=== PATIENT | female | born 1985 | race Caucasian/White ===

== ENCOUNTER 2017-10-24 12:18 | Emergency (ER) | payer MEDICAID, OTHER ==
[2017-10-24 13:07] LABS: #Lymphocytes 2.1 thou/uL (1.20-3.40); #Monocytes 0.7 thou/uL (0.11-0.59); %Basophils 0.1 % (0.0-1.0); %Eosinophils 0.3 % (0.0-10.0); %Lymphocytes 13.9 % (21.0-51.0); %Monocytes 4.5 % (0.0-10.0); %Neutrophils 81.2 % (42.0-75.0); Hemoglobin 14.3 g/dL (12.0-16.0); Mean Corpuscular HGB CONC 35.1 g/dL (32.0-36.0); Mean Corpuscular Hemoglobin 32.3 pg (27.0-31.0); Mean Corpuscular Volume 92.1 fl (81.0-99.0); Mean Platelet Volume 7.3 fL (7.4-10.4); Platelet Count 291 thou/uL (130-400); RBC Distribution Width 11.1 % (11.5-14.5); Red Blood Cell (RBC) Count 4.42 mill/uL (4.20-5.40); White Blood Cell (WBC) Count 14.8 thou/uL (4.8-10.8)
[2017-10-24 13:27] LABS: ALT (SGPT) 13 U/L (8-55); AST (SGOT) 12 U/L (5-34); Albumin 3.8 g/dL (3.5-5.0); Alkaline Phosphatase 64 U/L (40-150); Anion Gap 13 mmol/L (10-20); BUN (Urea Nitrogen) 9 mg/dL (7.0-18.7); Bilirubin, Total 0.4 mg/dL (0.2-1.2); Calc. Creatinine Clearance 0 mL/min (70-130); Calcium 9.7 mg/dL (7.8-10.44); Carbon Dioxide 24 mmol/L (22-29); Chloride 103 mmol/L (98-107); Estimated GFR-MDRD 90; Globulin 3.5 g/dL (2.4-3.5); Glucose 123 mg/dL (70-105); Potassium 4.2 mmol/L (3.5-5.1); Protein, Total 7.3 g/dL (6.0-8.3); Sodium 136 mmol/L (136-145)
--- NOTE | 2017-10-24 14:45 | ULT ---
FIRST TRIMESTER OBSTETRICAL ULTRASOUND: INDICATION: History of with cramping. FINDINGS: The uterus measures 11.3 x 10.5 x 7.3 cm. The right ovary measures 1.7 x 2.3 x 1.9 cm. The left ova ry measures 3.3 x 2.6 x 1.9 cm. There is a single intrauterine gestational sac with a pole and yolk sac identified. Cardiac activity is noted with the fetus measuring up to 168 b.p.m. No subcho rionic hemorrhage is evident. No free fluid is evident. The gestational age based on sonographic measurements is 8 weeks and 5 days with estimated due date . The gestational age based on dates was 7 weeks and 6 days with estimated due date of 06/06/18. IMPRESSION: Single live intrauterine gestation. POS: CHIDI
[2017-10-24 15:35] LABS: Bilirubin Small (Negative); Blood, Urine Negative (Negative); Clarity CLOUDY (Clear); Glucose, Urine (Dipstick) Negative (Negative); Leukocyte Negative (Negative); Nitrite Negative (Negative); Protein, Urine (Dipstick) Trace mg/dL (Neg-Trace); Specific Gravity, Urine 1.028 (1.002-1.036); Urobilinogen 0.2 mg/dL (0.2-1.0); pH, Urine 6.5 (5.0-9.0)
== END 2017-10-24 16:05 | disposition home or self-care (01) ==
LOC: ERS 12:18
DX: O20.0 Threatened abortion (principal); O99.341 Other mental disorders complicating pregnancy, first trimester; F32.9 Major depressive disorder, single episode, unspecified; Z3A.08 8 weeks gestation of pregnancy
CPT/HCPCS: 36415; 76856; 80053; 81003; 84702; 85025; 86900; 86901

== ENCOUNTER 2018-05-08 08:39 | Day surgery (SDC) | payer OTHER ==
[2018-05-08 09:25] VITALS: BMI 32.8
--- NOTE | 2018-05-08 12:48 | HP ---
DATE OF SERVICE: 05/08/2018 PRIMARY OB: Dr. Austin Liang. CHIEF COMPLAINT: Abdominal pains. HISTORY OF PRESENT ILLNESS: The patient is a 32-year-old G6, P4 female with an intrauterine pregnanc y at 37 weeks and a day, who presents to labor and delivery today with mild to moderate uterine contr actions requesting induction of labor. The patient denies any leakage of fluid, any vaginal bleeding , any urinary problems, any fever, fall, headache, chest pain, shortness of breath, nausea, vomiting, diarrhea, constipation. She denies any new rashes. She does have some hip problems when she sleeps on her side. Denies any back pain. PAST MEDICAL HISTORY: Depression and anxiety. She has a history of bacterial endocarditis. PAST SURGICAL HISTORY: She has had knee surgery and 2 cryosurgeries on her cervix. MEDICATIONS: vitamins. ALLERGIES: PENICILLINS. SOCIAL HISTORY: Denies tobacco, alcohol, or drug use. OB LABORATORY DATA: Blood type is A positive, antibody screen is negative. She is rubella immune. RPR is nonreactive. HIV is nonreactive. Hepatitis B surface antigen is nonreactive. Quad screen is negative. REVIEW OF SYSTEMS: Per HPI. PHYSICAL EXAMINATION: VITAL SIGNS: Blood pressure is 128/80, heart rate of 83, respiratory rate 18, temperature 98.5. GENERAL: She appears to be in no acute distress. She is alert and oriented, cooperative and pleasan t to interact with. HEENT: Head is normocephalic, atraumatic. LUNGS: Clear to auscultation bilaterally. HEART: Has a regular rate and rhythm. ABDOMEN: Soft and gravid. EXTREMITIES: Nontender, nonedematous. CERVICAL EXAM: A 2, 60, -2 station, unchanged after 2 hours or hour and a half. NST performed for abdominal pain in . Duration of the tracing is nearly 2 hours. Baseline is noted to be in the 140s with moderate long-term variability, positive accelerations, no decelerati ons. Contractions are irregular and not all felt by the patient. ASSESSMENT AND PLAN: The patient is a 32-year-old female G6, P4 with an intrauterine at 37 weeks who presented for evaluation of labor and requesting induction of labor. We informed the dhiraj ent that at 37 weeks, elective inductions are not performed. She has no evidence of labor at this ti me and the fetus has a reactive NST and category 1 tracing. The patient has been given reassurance a nd been given term labor precautions. The patient will be discharged to home. She does have an appo intment with her primary OB, Dr. Austin Liang on Tuesday, at which time she can be reevaluated if s he does not return here.
== END 2018-05-08 11:35 | disposition home or self-care (01) ==
LOC: L&D/OP 08:39
PROVIDERS: ATTEND Obstetrics & Gynecology
DX: O47.1 False labor at or after 37 completed weeks of gestation (principal); Z3A.37 37 weeks gestation of pregnancy; Z88.0 Allergy status to penicillin
CPT/HCPCS: 99283

== ENCOUNTER 2018-05-08 17:03 | Inpatient (IN) | payer OTHER ==
[2018-05-08] MEDS ORDERED: Ibuprofen 800 MG TAB PO PRN (18:04)
[2018-05-08] MEDS ORDERED: Lidocaine 1% (PF) 30 ML VIAL SC PRN (18:04)
[2018-05-08] MEDS ORDERED: HYDROcodone/Acetaminophen 5/325 mg Tablet PO PRN ×2 (18:04)
[2018-05-08] MEDS ORDERED: Ondansetron HCl/PF 4 MG/2 ML Vial IVP PRN (18:04)
[2018-05-08] MEDS ORDERED: NS / Oxytocin 40 units/1000ml 1,000 ML IV PRN (18:04)
[2018-05-08] MEDS ORDERED: Lactated Ringer's 1,000 ML IV SCH (18:15)
[2018-05-08] MEDS ORDERED: NS w/ Oxytocin 10 units 500 ML IV SCH (18:15)
[2018-05-08 18:28] VITALS: BMI 32.5
[2018-05-08 18:28] LABS: Hemoglobin 11.7 g/dL (12.0-16.0); Mean Corpuscular HGB CONC 34.6 g/dL (32.0-36.0); Mean Corpuscular Hemoglobin 31.3 pg (27.0-31.0); Mean Corpuscular Volume 90.3 fL (78.0-98.0); Mean Platelet Volume 7.6 fL (7.4-10.4); Platelet Count 225 thou/uL (130-400); RBC Distribution Width 11.9 % (11.5-14.5); Red Blood Cell (RBC) Count 3.75 mill/uL (4.20-5.40); White Blood Cell (WBC) Count 14.6 thou/uL (4.8-10.8)
[2018-05-08 19:10] LABS: HBSAg Index 0.19 S/CO (0-0.99); Hep B Surf Ag Non-Reactive S/CO (NonReactive); Syphilis Antibody Nonreactive (Nonreactive); Syphilis Antibody Index 0.03 S/CO (<1.00 Non-Reactive)
[2018-05-08] MEDS: Lactated Ringer's 1,000 ML IV SCH (22:55)
[2018-05-09] MEDS: Lactated Ringer's 1,000 ML IV SCH ×3 (03:35→11:40)
[2018-05-09] MEDS ORDERED: Lidocaine HCl/Epinephrine 5 ML AMPUL IJ ONE (07:28)
[2018-05-09] MEDS ORDERED: Bupivacaine 0.75% 13.4 ML, fentaNYL Citrate/PF 400 MCG in Sodium Chloride 0.9% 78.6 ML EPIDURAL SCH (07:30)
[2018-05-09] MEDS ORDERED: DISCONTINUE ALL PREVIOUS NARCOTICS FS SCH (07:30)
[2018-05-09] MEDS ORDERED: NS w/ Oxytocin 10 units 500 ML IVPB SCH (07:45)
[2018-05-09] MEDS ORDERED: Promethazine HCl 25 MG/ML VIAL IM PRN (10:21)
[2018-05-09] MEDS ORDERED: Eucerin (Mineral Oil/Petrolatum,White) 30 gm Jar TOP PRN (10:21)
[2018-05-09] MEDS ORDERED: diphenhydrAMINE 50 MG/ML VIAL IVP PRN (10:21)
[2018-05-09] MEDS ORDERED: Lactated Ringer's 500 ML IV PRN (10:21)
[2018-05-09] MEDS ORDERED: Acetaminophen 325 MG TAB PO PRN (10:21)
[2018-05-09] MEDS ORDERED: Ondansetron HCl/PF 4 MG/2 ML Vial IVP PRN ×2 (10:21→17:57)
[2018-05-09] MEDS ORDERED: ePHEDrine/0.9% NaCl/PF SYRINGE 50 mg/10 ml SLOW IVP PRN (10:21)
[2018-05-09] MEDS ORDERED: Naloxone HCl 0.4 mg/ml Vial IVP PRN ×2 (10:21)
[2018-05-09] MEDS ORDERED: fentaNYL Citrate/PF 400 MCG, Bupivacaine 0.5% 20 ML in Sodium Chloride 0.9% 72 ML EPIDURAL SCH (10:30)
[2018-05-09] MEDS ORDERED: Communication Order-Pharmacy FS SCH (10:30)
[2018-05-09] MEDS: NS / Oxytocin 40 units/1000ml 1,000 ML IV SCH ×2 (17:33→19:53)
[2018-05-09] MEDS ORDERED: Benzocaine/Menthol 20-0.5% 60 ML CAN TOP PRN (17:57)
[2018-05-09] MEDS ORDERED: Preparation H Ointment 28 GM TUBE PR PRN (17:57)
[2018-05-09] MEDS ORDERED: Lanolin Ointment 7 GM TUBE TOP PRN (17:57)
[2018-05-09] MEDS ORDERED: Milk Of Magnesia 30 ML UDCUP PO PRN (17:57)
[2018-05-09] MEDS ORDERED: diphenhydrAMINE 25 MG CAP PO PRN (17:57)
[2018-05-09] MEDS ORDERED: Acetaminophen/Codeine 30-300mg Tablet PO PRN ×2 (17:57)
[2018-05-09] MEDS ORDERED: Adacel (T-DAP) 0.5 ML VIAL IM ONE (17:57)
[2018-05-09] MEDS ORDERED: Bisacodyl 10 MG SUPP PR PRN (17:57)
[2018-05-09] MEDS ORDERED: Zolpidem Tartrate 5 MG TAB PO PRN (17:57)
[2018-05-09] MEDS: Docusate Calcium (SURFAK) 240 MG CAP PO SCH (22:19)
[2018-05-09] MEDS: Ibuprofen 800 MG TAB PO SCH (22:19)
[2018-05-09] MEDS ORDERED: HYDROcodone/Acetaminophen 5/325 mg Tablet PO PRN (23:26)
[2018-05-09] MEDS: HYDROcodone/Acetaminophen 5/325 mg Tablet PO PRN (23:47)
[2018-05-10] MEDS: Ibuprofen 800 MG TAB PO SCH ×3 (05:26→21:24)
[2018-05-10] MEDS: HYDROcodone/Acetaminophen 5/325 mg Tablet PO PRN ×3 (05:31→18:12)
[2018-05-10 07:44] LABS: Hemoglobin 10.2 g/dL (12.0-16.0); Mean Corpuscular HGB CONC 33.5 g/dL (32.0-36.0); Mean Corpuscular Hemoglobin 31.3 pg (27.0-31.0); Mean Corpuscular Volume 93.4 fL (78.0-98.0); Mean Platelet Volume 7.9 fL (7.4-10.4); Platelet Count 166 thou/uL (130-400); RBC Distribution Width 12.3 % (11.5-14.5); Red Blood Cell (RBC) Count 3.25 mill/uL (4.20-5.40); White Blood Cell (WBC) Count 14.6 thou/uL (4.8-10.8)
[2018-05-10] MEDS: Ferrous Sulfate 325 MG TAB PO SCH ×2 (09:47→18:13)
[2018-05-10] MEDS: Prenatal Vitamin 1 TAB PO SCH (09:47)
[2018-05-10] MEDS: Docusate Calcium (SURFAK) 240 MG CAP PO SCH ×2 (09:47→21:24)
[2018-05-10] MEDS ORDERED: Promethazine 25 MG TAB PO PRN (20:39)
[2018-05-11 01:29] VITALS: TEMP 98.2
[2018-05-11] MEDS: Ibuprofen 800 MG TAB PO SCH ×2 (06:21→13:10)
[2018-05-11 08:19] VITALS: BP 128/87
[2018-05-11] MEDS: Docusate Calcium (SURFAK) 240 MG CAP PO SCH (09:14)
[2018-05-11] MEDS: Prenatal Vitamin 1 TAB PO SCH (09:14)
[2018-05-11] MEDS: Ferrous Sulfate 325 MG TAB PO SCH (09:14)
[2018-05-11] MEDS: HYDROcodone/Acetaminophen 5/325 mg Tablet PO PRN (13:10)
== END 2018-05-11 14:40 | disposition home or self-care (01) | DRG 775 ==
LOC: L&D/OP 17:03 → L&D 19:48 → 3SW 05-09 20:07
PROVIDERS: ADMIT Obstetrics & Gynecology; ATTEND Obstetrics & Gynecology
PROC: 10E0XZZ Delivery of Products of Conception, External Approach (ICD-10-PCS; principal; 2018-05-09)
DX: O60.14X0 Preterm labor third trimester with preterm delivery third trimester, not applicable or unspecified (principal); Z3A.37 37 weeks gestation of pregnancy; Z37.0 Single live birth; O99.343 Other mental disorders complicating pregnancy, third trimester; F32.9 Major depressive disorder, single episode, unspecified
CPT/HCPCS: 36415; 51702; 85027; 86780; 86850; 86900; 86901; 87340; 90715; 99285; J2001; J2405; J3010; J3490; J7050; J7620

== ENCOUNTER 2018-06-12 07:27 | Day surgery (SDC) | payer OTHER ==
[2018-06-09 08:44] VITALS: BMI 29.7
[2018-06-12] MEDS ORDERED: cefOXitin 2 GM VIAL ONE (08:17)
[2018-06-12] MEDS ORDERED: Sodium Chloride 0.9% 0 ML ONE (08:17)
[2018-06-12] MEDS ORDERED: Midazolam HCl 2 mg/2 ml Vial ONE (08:57)
[2018-06-12] MEDS ORDERED: Bupivacaine HCl 0.5%/Epinephrine 1:200,000/PF 30 ml Vial ONE (08:59)
[2018-06-12] MEDS ORDERED: Bacitracin Zinc Ointment 30 gm TUBE ONE (08:59)
[2018-06-12] MEDS ORDERED: Lidocaine 2% 10 ML INJ ONE (08:59)
[2018-06-12] MEDS ORDERED: Levofloxacin 500 mg/D5W 100 ml Premix Bag ONE (09:03)
[2018-06-12] MEDS ORDERED: HYDROmorphone 2 MG/ML VIAL ONE (09:04)
[2018-06-12] MEDS ORDERED: Promethazine HCl 25 MG/ML VIAL ONE (09:05)
--- NOTE | 2018-06-12 09:56 | OP ---
PREOPERATIVE DIAGNOSIS: Chronic anal fissure with sentinel pile. SURGEON: Constantin Watters M.D. PROCEDURE PERFORMED: Lateral internal sphincterotomy with excision of sentinel pile. INDICATIONS: This is a 32-year-old female who has had intermittent rectal pain and bleeding for many months. She was found to have a chronic anal fissure. She desired excision of the sentinel pile as well. FINDINGS: Small posterior sentinel pile with chronic anal fissure. PROCEDURE IN DETAIL: After informed consent was obtained, the patient was taken to the operating megha m and given general endotracheal anesthesia. She was placed in the lithotomy position. Her perianal region was prepped and draped in usual fashion. Local anesthesia infiltrated subcutaneously and cyndie p as a four quadrant anal block. The bivalve anal retractor was inserted. The anus inspected. She had a chronic posterior anal fissure. The sentinel pile was excised with electrocautery. An incisio n made in the intersphincteric groove on the left side. Anoderm anal mucosa bluntly dissected from t he internal sphincter. The internal sphincter then bluntly dissected from the external sphincter and sharply divided. Hemostasis achieved with direct pressure. A 3-0 chromic suture used to close the incision. Gelfoam impregnated with bacitracin inserted within the anal canal. Sterile bandage appli ed. The patient tolerated the procedure well and was transferred to recovery in good condition. Spo nge and needle count verified correct x2.
== END 2018-06-12 12:00 | disposition home or self-care (01) ==
LOC: SDC 07:27
PROVIDERS: ATTEND Surgery
PROC: 0D8R3ZZ Division of Anal Sphincter, Percutaneous Approach (ICD-10-PCS; principal; 2018-06-12)
DX: K60.1 Chronic anal fissure (principal); K64.4 Residual hemorrhoidal skin tags; Z87.891 Personal history of nicotine dependence; Z79.899 Other long term (current) drug therapy; Z88.0 Allergy status to penicillin
CPT/HCPCS: 88305; J0670; J0694; J1170; J1956; J2250; J2550; J7050; Q9968

== ENCOUNTER 2018-08-28 08:16 | Emergency (ER) | payer OTHER, SELFPAY ==
[2018-08-28 10:42] LABS: Pregnancy Test - Urine (BHCG) POSITIVE (Negative)
[2018-08-28 10:43] LABS: Pregu Control Background? CLEAR/WHITE (CLR/WHITE); Pregu Control Bar Appear? YES (CONTROL BAR)
--- NOTE | 2018-08-28 12:30 | ULT ---
PELVIC ULTRASOUND INCLUDING TRANSABDOMINAL AND TRANSVAGINAL AND VASCULAR DUPELX WITH COLOR AND SPECTR AL DOPPLER IMAGING: HISTORY: A 32-year-old female with a history of IUD placement 8 weeks ago. Positive home test. FINDINGS: The uterus is borderline in size measuring 9.3 x 5.0 x 6.6 cm. The right ovary measures 1.9 x 2.8 x 3.3 cm. The left ovary is not seen. Endometrium approximates 0.8 cm. There is a somewhat thick-wal led partially cystic structure measuring approximately 1.7 x 1.8 cm in the right adnexal region. Enh ancement has a somewhat ring of fire appearance. This could potentially be a corpus luteum cyst, alt michelle the possibility of an early ectopic certainly cannot be excluded. No evidence for an intrauterine . No IUD is seen within the uterus. IMPRESSION: No intrauterine gestational sac or Intrauterine device seen within the uterus. Right ovary demonstra meme vascular flow. No evidence of right ovarian torsion The left ovary is not seen. There is a 1.7 x 1.8 cm diameter somewhat thick walled cyst or complex cystic mass in the right adnexal region poss ibly representing a corpus luteum cyst of the right ovary or possibly representing ectopic . No significant abnormal fluid collection within the pelvis. Followup serum HCGs are recommended to evaluate for potential ectopic . POS: CHIDI
[2018-08-28 13:20] LABS: #Eosinphils 0.1 thou/uL (0.0-0.7); #Lymphocytes 2.7 thou/uL (1.20-3.40); #Monocytes 0.6 thou/uL (0.11-0.59); #Neutrophils 5.6 thou/uL (1.40-6.50); %Basophils 0.4 % (0.0-1.0); %Eosinophils 0.8 % (0.0-10.0); %Lymphocytes 29.8 % (21.0-51.0); %Monocytes 6.2 % (0.0-10.0); %Neutrophils 62.8 % (42.0-75.0); Hemoglobin 14.1 g/dL (12.0-16.0); Mean Corpuscular Hemoglobin 30.3 pg (27.0-31.0); Mean Platelet Volume 7.3 fL (7.4-10.4); Platelet Count 329 thou/uL (130-400); RBC Distribution Width 11.8 % (11.5-14.5); Red Blood Cell (RBC) Count 4.64 mill/uL (4.20-5.40); White Blood Cell (WBC) Count 8.9 thou/uL (4.8-10.8)
[2018-08-28 13:36] LABS: ALT (SGPT) 14 U/L (8-55); AST (SGOT) 17 U/L (5-34); Alkaline Phosphatase 80 U/L (40-150); Anion Gap 12 mmol/L (10-20); BUN (Urea Nitrogen) 10 mg/dL (7.0-18.7); Bilirubin, Total 0.6 mg/dL (0.2-1.2); Calc. Creatinine Clearance 0 mL/min (70-130); Calcium 9.3 mg/dL (7.8-10.44); Carbon Dioxide 21 mmol/L (22-29); Chloride 107 mmol/L (98-107); Estimated GFR-MDRD 88; Globulin 3.2 g/dL (2.4-3.5); Glucose 81 mg/dL (70-105); Potassium 3.8 mmol/L (3.5-5.1); Protein, Total 7.2 g/dL (6.0-8.3); Sodium 136 mmol/L (136-145)
--- NOTE | 2018-08-28 23:00 | CON ---
DATE OF CONSULTATION: 08/28/2018 TIME OF SERVICE: 1500 hours. GYNECOLOGY ER CONSULTATION REASON FOR CONSULTATION: Positive test, possible ectopic . HISTORY OF PRESENT ILLNESS: Ms. Rivas is a 32-year-old 7, para 5, AB 1, who presents today to the emergency room with mild lower abdominal discomfort and symptoms of . The patient had a progesterone IUD placed by Dr. Liang approximately 2 months ago. She reports that she had some ble eding for about 3-4 weeks afterwards that was heavy at times and has since stopped. She has had some fatigue and nausea for the past 3-4 days and mild lower abdominal pain. She denies localization of her lower abdominal pain. She denies syncope. 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 Positive history of chlamydia in teenage years. His tory of cryosurgery in the past x2. Blood type is Rh positive. PAST MEDICAL HISTORY: Denies. PAST SURGICAL HISTORY: Cryosurgery and knee surgery. ALLERGIES: PENICILLINS, the patient reports that she is not allergic to cephalosporins. MEDICATIONS: None. SOCIAL HISTORY: Denies tobacco, alcohol or IV drug abuse. FAMILY HISTORY: Noncontributory. REVIEW OF SYSTEMS: Noncontributory. PHYSICAL EXAMINATION: GENERAL: White female, resting comfortably. VITAL SIGNS: Pulse 82, respirations 18, blood pressure 118/72, temperature 97.6. HEENT: Within normal limits. LUNGS: Clear to auscultation bilaterally. HEART: Regular rate and rhythm. ABDOMEN: Soft and nontender without rebound or guarding. Mild discomfort to deep palpation in the m id lower quadrants. She has no CVA tenderness. PELVIC: By report is benign without cervical motion tenderness. She has no vaginal bleeding and is not passing tissue. EXTREMITIES: Without clubbing, cyanosis or edema. LABORATORY STUDIES: Hematocrit is 42% with a normal platelet, a white count of 8.6. Comp met is wit hin normal limits. The patient's beta hCG is 3998. Ultrasound reveals an empty uterus without gesta tional sac or IUD visualized. The endometrium is 8 mm in thickness. My observation of the pictures of a DIRECTOR OF IT OPERATIONS ultrasound reveals it to be somewhat irregular and perhaps thicker than that. There is no g estational sac noted in the uterus. In the adnexa, there is no significant free fluid. There is an approximately 1.5 cm cyst in the right adnexal region. Radiology felt like there was somewhat of a r ing of fire appearance on enhancement with 3D color Doppler, this could not be appreciated by myself on reviewing those pictures. There was no definitive ectopic in the right or left adnexa. The left adnexa was not well visualized. IMPRESSION: Approximately 2 months status post IUD placement with now absent IUD and positive pregna ncy test with a beta hCG of approximately 4000. No definitive intrauterine noted. PLAN: Discussed with patient options. My preferred option would be to admit the patient and repeat hCG in 24 hours. The patient is resistant to this due to her needs with her other children as well a s her lack of symptoms and pain. I have explained to the patient this is understandable and other op tions are reasonable if the patient could be compliant with these. We also discussed the possibility of methotrexate administration; however, I am reluctant to do so on a single beta hCG of 4000. Our plan will be for the patient to return to the emergency department in 48 hours. She was given an ord er for repeat CBC and beta hCG at that time and the patient will not leave until those results are ob tained and consultation is obtained with the OB hospitalist on-call, who is Dr. Ji that day. At that time, may become more clear and the patient may need a repeat ultrasound. Other treatmen t options may include methotrexate or laparoscopic salpingectomy for ectopic. The patient was given ER precautions to return on an emergent basis if increasing abdominal pain, syncope, heavy vaginal bl eeding are encountered.
== END 2018-08-28 15:52 | disposition home or self-care (01) ==
LOC: ERS 08:16
DX: Z03.89 Encounter for observation for other suspected diseases and conditions ruled out (principal); F32.9 Major depressive disorder, single episode, unspecified
CPT/HCPCS: 36415; 76856; 80053; 81025; 84702; 85025

== ENCOUNTER 2019-02-13 11:05 | Outpatient (CLI) | payer OTHER ==
--- NOTE | 2019-02-13 11:36 | ULT ---
US Thyroid STANDARD History: [Hyperthyroidism] Comparison: None. Findings: Real-time grayscale and color evaluation of the thyroid was performed. Vascularity is christos l. Echotexture is normal. No nodules. Isthmus measures 6 mm in AP dimension. Right lobe measures 4.5 x 1.5 x 1.7 cm and left lobe measures 4.7 x 1.3 x 1.6 cm. Impression: Normal examination of the thyroid.
== END 2019-02-13 11:06 | disposition home or self-care (01) ==
LOC: ULT 11:05
PROVIDERS: ATTEND Family Medicine
DX: I42.9 Cardiomyopathy, unspecified (principal)
CPT/HCPCS: 76536; 93306

== ENCOUNTER 2019-04-18 19:47 | Inpatient (IN) | payer OTHER, SELFPAY ==
[2019-04-18 20:21] VITALS: BMI 34.0
[2019-04-18] MEDS ORDERED: hydrALAZINE 20 MG/ML VIAL SLOW IVP PRN ×2 (20:55→21:41)
[2019-04-18 21:04] LABS: Amnisure Internal Control QC ACCEPTABLE (ACCEPTABLE); Amnisure Test RUPTURE DETECTED (No Rupture)
[2019-04-18] MEDS ORDERED: Lidocaine 1% (PF) 30 ML VIAL SC PRN (21:41)
[2019-04-18] MEDS ORDERED: Ondansetron PF 4 MG/2 ML Vial IVP PRN (21:41)
[2019-04-18] MEDS ORDERED: Butorphanol Tartrate 1 MG/ML VIAL SLOW IVP PRN (21:41)
[2019-04-18] MEDS ORDERED: Promethazine HCl 25 MG/ML VIAL IM PRN (21:41)
--- NOTE | 2019-04-18 21:42 | PDOC.EVN ---
Event Note - Event Note Event Note: OBGYN Faculty H&P Time: 2129 I have seen the patient at bedside. Agree with Resident plan for IOL due to PROM at 38-39 weeks. CC: LOF since noon Patient is a patient of [facility], incarcerated (guard here) 33 yo W at 38 weeks 4 days with EDC 04/28/19 with LOF x noon. No VB. Good FM. Has remotre HX endocarditis but no cards follow up needed, no restrictions on activities. No CS HX Past Med: Past endocarditis HX, remote. Past Surg: Right knee surgery; HX cervical CRYO for abn pap Allergies: "PCN" as child OB HX: SAB x1, no CS HX Social: Past HX opiod use, none now Physical: Vitals wnl, afebrile NAD Clear fluid on SSE per resident Amnisure pos CX=3/50/-1/BOWR Monitors: cat 1, irreg CTX Assessment and plan: PROM, GBS pos...remote "allergy" to PCN as child. 1. OK for ancef as unsure if true allergy. 2. admit 3, UDS 4. Pain control
--- NOTE | 2019-04-18 21:43 | PDOC.EVN ---
Event Note - Event Note Event Note: GBS culture was clinda resistant, so if ancef not used...will need vancomycin
[2019-04-18] MEDS ORDERED: Ibuprofen 800 MG TAB PO PRN (21:46)
[2019-04-18] MEDS ORDERED: NS / Oxytocin 40 units/1000ml 1,000 ML IV PRN (22:00)
[2019-04-18] MEDS ORDERED: NS w/ Oxytocin 10 units 500 ML IV SCH (22:00)
[2019-04-18] MEDS: Lactated Ringer's 1,000 ML IV SCH (22:05)
[2019-04-18] MEDS: CEFAZOLIN 2 GM in Premix Bag 1 BAG IVPB SCH (22:10)
--- NOTE | 2019-04-18 22:21 | PDOC.FPROB ---
FMR OB H&P: HPI - History of Present Illness Chief Complaint: Rupture of Membranes History of Present Illness: Ms. Rivas is a 23yo CF at 38+4 by LMP consistent with first trimester U/ S who presents with rupture of membranes. Pt is current incarcerated and states that some time before lunch she experienced a large gush of non-bloody, vaginal fluid. She reports intermittent contractions, good movement, and no vaginal discharge or bleeding or urinary sxs. She currently states pain is a dull lower back ache. No nausea or vomiting. Primary Care Physician: Dr. Rios and clinic. 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 Recent Echo on 02/13/19 which showed normal left ventricle size, no valvular abnormalities, and EF 60-65% - Depression, anxiety - Asthma - intermittent, uses a ProAir inhaler on average twice weekly with resolution of sxs. - OB History OB History: - 2005, 40wks, - 2006, 39wks, - 2007, 40wks, - 2009, 40wks, - 2018, 37wks, - 1 SAB in 2007 No complications during any previous pregnancies, no NICU stays for newborns, no complications. 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 - Surgical History Sx History: Right knee. - Social History Social History: Current incarcerated. Past history of opioid abuse. Denies any use of tobacco, alcohol, or any illicit drugs during this . - Family History Family History: No known genetic abnormalities or complications. FMR OB H&P: Medications - Current Home Medications: Medication Instructions Recorded Confirmed Type Acetaminophen [Tylenol] 650 mg PO PRN PRN 04/18/19 04/18/19 History Ondansetron [Zofran ODT] 4 mg PO PRN PRN 04/18/19 04/18/19 History [id number]/Iron Fum/Folic/Docusate 1 tablet PO DAILY 04/18/19 04/18/19 History [ 19] Allergies/Adverse Reactions: Allergies Allergy/AdvReac Type Severity Reaction Status Date / Time amoxicillin Allergy Emesis Verified 06/09/18 08:36 Penicillins Allergy Emesis Verified 06/09/18 08:36 FMR OB H&P: ROS - Review of Systems General: denies: fever/chills, weight/appetite/sleep changes, night sweats Eyes: denies: vision changes ENT: denies: nasal congestion, rhinorrhea Cardiovascular: denies: chest pain, palpitation, edema Respiratory: denies: cough, congestion, shortness of breath Gastrointestinal: reports: indigestion. denies: abdominal pain, nausea, vomiting, diarrhea, constipation Genitourinary (Female): denies: incontinence, dysuria, hematuria Musculoskeletal: reports: stiffness (in lower back) Neurologic: denies: numbness, syncope Integumentary: denies: rash Psychological: reports: depression, anxiety FMR OB H&P: Vital Signs - Maternal Vital signs: Vital Signs - First Documented Temp Pulse Resp BP Pulse Ox 98.3 F 64 18 126/86 97 04/18/19 20:09 04/18/19 20:09 04/18/19 20:09 04/18/19 20:09 04/18/19 20:09 - Heart Tones Baseline: 140 Variability: moderate Acceleration: present Deceleration: absent Category: category 1 [place] contractions every: infrequent FMR OB H&P: Physical Exam - Physical Exam General: NAD, awake, alert and oriented HEENT: normocephalic and atraumatic, PERRLA Neck: supple, trachea midline Heart: RRR, normal S1/S2, no murmurs/rubs/gallops, pulses present, no edema General: CTAB, no respiratory distress, good air movement, no wheezing Abdomen: soft, gravid, non-tender, bowel sound present Musculoskeletal: pulses present Neurological: no focal deficit Skin: no rash Lymphatic: no unusual bruising or bleeding Psychiatric: good judgement and insight - Pelvic Exam Vulva: normal hair distribution, no masses, no lesions, no discharge, no blood, normal rugae Deviation from normal: speculum exam with pooling of clear fluid in posterior vaginal vault Cervix: no masses, no lesions, no blood SVE: /-3 Jackson score: 6 Membranes: SROM FMR OB H&P: Results - Labs Lab results: Laboratory Results - last 24 hr 04/18/19 20:37 Amnio Swab Test RUPTURE DETECTED H Other labs: amnio swap + FMR OB H&P: A/P - Problem List (1) Term Current Visit: Yes Status: Acute Code(s): Z34.90 - ENCNTR FOR SUPRVSN OF NORMAL , UNSP, UNSP TRIMESTER Comment: - 38+4 by LMP consistent with 1st trimester US - Favorable jackson score of 6. Last check /-3. Will admit and start pitocin for induction of labor - Continuous monitoring - GBS positive - remote PCN allergy, unsure of rxn. Will give 2g Ancef q8h and monitor closely for any rxns and will tx and change to Vanc if needed - q4h cervical checks (2) Rupture of membranes with clear amniotic fluid Current Visit: Yes Status: Acute Code(s): [id number] - Comment: - Reports large gush of clear vaginal fluid. Amnio swap positive. Speculum exam positive for pooling of clear fluid in posterior vaginal vault - Favorable Jackson. Will admit for induction of labor (3) History of drug abuse Current Visit: Yes Status: Chronic Code(s): F19.11 - OTHER PSYCHOACTIVE SUBSTANCE ABUSE, IN REMISSION Comment: - Denies current use. Will obtain UDS and consult case management. (4) History of asthma Current Visit: No Status: Chronic Code(s): Z87.09 - PERSONAL HISTORY OF OTHER DISEASES OF THE RESPIRATORY SYSTEM Comment: - Mild intermittant. Proair use on average twice weekly. Has required neb tx after past deliveries. Will restart home Proair and monitor. (5) History of bacterial endocarditis Current Visit: No Status: Chronic Code(s): Z86.79 - PERSONAL HISTORY OF OTHER DISEASES OF THE CIRCULATORY SYSTEM Comment: - tx in 2004. No current cardiac restrictions. Does not follow with manager fitness. - Echo in January 2019 which was WNL - no current active management at this time Disposition: Pending labor and delivery. Anticipated hospitalization >48 hours. Discussion: Date/Time: 04/18/192220 This H&P was discussed with Dr. Terry and Dr. Torri Chapa, PGY3 who agree with the above documentation and plan.
[2019-04-18] MEDS: Acetaminophen 325 MG TAB PO PRN (22:25)
[2019-04-18 22:30] LABS: Hemoglobin 12.7 g/dL (12.0-16.0); Mean Corpuscular HGB CONC 34.3 g/dL (32.0-36.0); Mean Corpuscular Hemoglobin 31.5 pg (27.0-31.0); Mean Corpuscular Volume 91.8 fL (78.0-98.0); Mean Platelet Volume 8.9 fL (7.4-10.4); Platelet Count 187 thou/uL (130-400); RBC Distribution Width 11.9 % (11.5-14.5); Red Blood Cell (RBC) Count 4.05 mill/uL (4.20-5.40); White Blood Cell (WBC) Count 13.6 thou/uL (4.8-10.8)
[2019-04-18] MEDS: Calcium Carbonate 500 MG ChewTAB PO PRN (22:53)
[2019-04-18 23:07] LABS: Syphilis Antibody Nonreactive (Nonreactive); Syphilis Antibody Index 0.03 S/CO (<1.00 Non-Reactive)
[2019-04-18 23:23] LABS: Amphetamine Not Detected (NotDetected); Barbiturates Screen Not Detected (NotDetected); Benzodiazepine Screen Not Detected (NotDetected); Cocaine Metabolite Screen Not Detected (NotDetected); Medtox Control Line Valid? VALID (VALID); Medtox Reader # READER 4; Methadone Not Detected (NotDetected); Methamphetamine Not Detected (NotDetected); Opiate Screen Not Detected (NotDetected); Oxycodone Screen Not Detected (NotDetected); Phencyclidine (PCP) Not Detected (NotDetected); THC/Cannabinoid Screen Not Detected (NotDetected); Tricyclic Screen Not Detected (NotDetected)
[2019-04-18 23:35] LABS: HBSAg Index 0.21 S/CO (0-0.99); Hep B Surf Ag Non-Reactive S/CO (NonReactive)
--- NOTE | 2019-04-19 00:35 | PDOC.LDPN ---
Labor & Delivery Progress Note - Subjective Subjective: comfortable - Objective Vital signs reviewed and normal: yes General: NAD, resting Uterine fundus: non tender SVE: @[address] Correia Dilation: 4 Effacement: 75% Station: -1 FHT: category 1 (baseline 130, moderate variablility, + accel, no decels), variability present Gerald contractions every: q2-6 min - Assessment (1) Term Code(s): Z34.90 - ENCNTR FOR SUPRVSN OF NORMAL , UNSP, UNSP TRIMESTER Current Visit: Yes Status: Acute Comment: - 38+4 by LMP consistent with 1st trimester US - /-1. Continue pitocin - Continuous monitoring - GBS positive - status post 1 dose Ancef @ 2200 - q4h cervical checks, next at 0430 - UDS negative Plan: continue plan of care
[2019-04-19] MEDS ORDERED: Fentanyl 4 mcg/Bup 0.1% Cadd 100 ML ONE (01:40)
[2019-04-19] MEDS ORDERED: Ondansetron PF 4 MG/2 ML Vial IVP PRN ×2 (01:44→07:54)
[2019-04-19] MEDS ORDERED: diphenhydrAMINE 50 MG/ML VIAL IVP PRN (01:44)
[2019-04-19] MEDS ORDERED: Promethazine HCl 25 MG/ML VIAL IM PRN (01:44)
[2019-04-19] MEDS ORDERED: Lactated Ringer's 500 ML IV PRN (01:44)
[2019-04-19] MEDS ORDERED: ePHEDrine/0.9% NaCl/PF SYRINGE 50 mg/10 ml SLOW IVP PRN (01:44)
[2019-04-19] MEDS ORDERED: Naloxone HCl 0.4 mg/ml Vial IVP PRN ×2 (01:44)
[2019-04-19] MEDS ORDERED: Fentanyl 4 mcg/Bupivacaine 0.1% Cassette 100 ML EPIDURAL SCH (01:45)
[2019-04-19] MEDS ORDERED: Communication Order-Pharmacy FS SCH (01:45)
[2019-04-19] MEDS: Lactated Ringer's 1,000 ML IV SCH ×2 (02:30→05:16)
[2019-04-19] MEDS: Calcium Carbonate 500 MG ChewTAB PO PRN (03:57)
[2019-04-19] MEDS: Acetaminophen 325 MG TAB PO PRN ×3 (04:30→19:50)
--- NOTE | 2019-04-19 04:50 | PDOC.LDPN ---
Labor & Delivery Progress Note - Subjective Subjective: comfortable - Objective Vital signs reviewed and normal: yes General: NAD, resting Uterine fundus: non tender SVE: @ 0430 Dilation: 5 Effacement: 75% (80%) Station: -1 FHT: category 1 (baseline 140, moderate variability, pos accels, no decels), acceleration absent, variable decelerations (few scattered variable decels, not persistent, associated with repositioning) [place] contractions every: q3min IUPC placed: yes - Assessment (1) Term Code(s): Z34.90 - ENCNTR FOR SUPRVSN OF NORMAL , UNSP, UNSP TRIMESTER Current Visit: Yes Status: Acute Comment: - 38+5 by LMP consistent with 1st trimester US - /-1. Continue pitocin, will tritrate for adequate contractions. IUPC placed. - Epidural placed. Reports good pain control. - Continuous monitoring - GBS positive - status post 1 dose Ancef @ 2200 - q4h cervical checks, next at 0830 - UDS negative Plan: continue plan of care
[2019-04-19] MEDS: CEFAZOLIN 2 GM in Premix Bag 1 BAG IVPB SCH (06:42)
--- NOTE | 2019-04-19 07:19 | PDOC.EVN ---
Event Note - Event Note Event Note: [facility]BN[facility] Faculty Delivery note (705) Present and participated in controlled at 07 by resident team (see full note). No lacs NC x 1 reduced at time of body delivery Baby vigorous Placenta intact by Bob mechanism at 07 EBL less than 300 no complications Counts correct To routine care
--- NOTE | 2019-04-19 07:43 | PDOC.OPDEL ---
OB Operative/Delivery Note Delivery Dr/Surgeon: Harrison/Gabriel/Bren Pre-Delivery Diagnosis: ruptured membrane Procedure/Post Delivery Dx: spontaneous vaginal delivery Weeks gestation: 38 (.5) Anesthesia: epidural - Findings A Sex: female - 1 min: 8 - 5 min: 9 - Additional Findings/Plan Placenta delivered: spontaneous Repaired Obstetrical Laceration: none Estimated blood loss: 20 Compilations/Other Findings: This is a 23yo at 38.5 by LMP consistent with first trimester U/S who delivered a viable F infant at 0706. Following an uneventful antepartum course, a vigorous female was delivered over an intact perineum in the right occipitoanterior position. Anterior Shoulder and then remainder of the body delivered. Nuchal cordx1. The head was held down and mouth and nares were bulb suctioned. Cord clamped after delayed cord clamping? and cut and cord blood collected. Placenta delivered intact in the Bob presentation with a 3 vessel cord noted. Fundal massage was performed and the fundus was firm. The cervix and vagina were inspected and found to be free of lacerations. went to nursery in good condition for routine care. Apgars were 8/9 at 1 & 5 minutes, respectively. Patient tolerated delivery well and went to after routine recovery/care. Post delivery plan: routine recovery
[2019-04-19] MEDS ORDERED: Bisacodyl 10 MG SUPP PR PRN (07:54)
[2019-04-19] MEDS ORDERED: Adacel (T-DAP) 0.5 ML SYRINGE IM ONE (07:54)
[2019-04-19] MEDS ORDERED: Milk Of Magnesia 30 ML UDCUP PO PRN (07:54)
[2019-04-19] MEDS ORDERED: Lanolin Ointment 7 GM TUBE TOP PRN (07:54)
[2019-04-19] MEDS ORDERED: NS / Oxytocin 40 units/1000ml 1,000 ML IV SCH (07:54)
[2019-04-19] MEDS ORDERED: Benzocaine-Menthol 82.5 ML CAN TOP PRN (07:54)
[2019-04-19] MEDS ORDERED: diphenhydrAMINE 25 MG CAP PO PRN (07:54)
[2019-04-19] MEDS ORDERED: hydrALAZINE 20 MG/ML VIAL SLOW IVP PRN (07:54)
[2019-04-19] MEDS ORDERED: Prenatal Vitamin 1 TAB PO SCH ×2 (09:00)
--- NOTE | 2019-04-19 10:44 | PDOC.EVN ---
Event Note - Event Note Event Note: Due to patient's remote history of bacterial endocarditis of undetermined etiology, a CV exam was performed in order to determine if any CV anomalies were present following fluid shift. General: Patient was A&O x 3 in no acute distress with baby in lap. CV Exam: RRR w/o M/C/G/R. No JVD. Good capillary refill. Impression: No acute findings. Addendum - Attending - Attending Attestation Date/Time: 04/19/19 4739 I discussed the management with Dr. Coley. I agree with the Assessment and Plan documented above.
[2019-04-19] MEDS: Ibuprofen 800 MG TAB PO SCH ×2 (14:37→21:48)
[2019-04-19] MEDS: Docusate Calcium (SURFAK) 240 MG CAP PO SCH ×2 (18:25→21:48)
[2019-04-19] MEDS: Ferrous Sulfate 325 MG TAB PO SCH ×2 (18:37→18:38)
[2019-04-20] MEDS: Acetaminophen 325 MG TAB PO PRN (00:36)
[2019-04-20] MEDS: Ibuprofen 800 MG TAB PO SCH (05:01)
[2019-04-20 07:33] VITALS: BP 113/75; TEMP 97.9
--- NOTE | 2019-04-20 07:56 | PDOC.PP ---
Post Progress Note Post Day #: 1 Subjective: pt reports pain in low back, resolved with lidocaine patch. Nursing staff reports minimal bleeding, frequent requests for narcotics, attempts to contact people outside the hospital. PO intake tolerated: yes Flatus: yes Ambulation: yes Vital Signs (12 hours) Temp Pulse Resp BP Pulse Ox 04/20/19 07:32 97.9 F 66 15 113/75 97 04/20/19 05:11 97.8 F 72 16 126/71 98 04/20/19 00:40 71 16 122/74 98 Weight Weight 84.368 kg - Physical Examination General: NAD Cardiovascular: no m/r/g Respiratory: clear to auscultation bilaterally Abdominal: appropriately TTP Neurological: no gross focal deficits Psychiatric: A&Ox3 Result Diagrams: 04/18/19 22:12 Additional Labs: Post Labs Blood Type A POSITIVE 04/18/19 22:12 Hep Bs Antigen Non-Reactive S/CO (NonReactive) 04/18/19 22:12 (1) Vaginal delivery Code(s): O80 - ENCOUNTER FOR FULL-TERM UNCOMPLICATED DELIVERY Status: Acute Comment: - routine , no lacs, minimal bleeding - motrin and tylenol for pain control (2) History of bacterial endocarditis Code(s): Z86.79 - PERSONAL HISTORY OF OTHER DISEASES OF THE CIRCULATORY SYSTEM Status: Chronic Comment: - tx in 2004. No current cardiac restrictions. 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 - Echo in January 2019 which was WNL - no current active management at this time Addendum - Attending - Attending Attestation Date/Time: 04/21/19 4765 I personally evaluated the patient and discussed the management with Dr. Rios. I agree with the Assessment and Plan documented above.
[2019-04-20] MEDS ORDERED: Lidocaine 5% Patch TD SCH (09:00)
[2019-04-20] MEDS ORDERED: Lidocaine Patch Removal 1 EACH TOP SCH (21:00)
== END 2019-04-20 08:30 | DRG 807 ==
LOC: L&D/OP 19:47 → EEVIPCON 21:33 → L&D 21:33 → 3SE 04-19 09:58
PROVIDERS: ADMIT Obstetrics & Gynecology; ATTEND Obstetrics & Gynecology
PROC: 10E0XZZ Delivery of Products of Conception, External Approach (ICD-10-PCS; principal; 2019-04-19)
DX: O42.913 Preterm premature rupture of membranes, unspecified as to length of time between rupture and onset of labor, third trimester (principal); Z37.0 Single live birth; O99.344 Other mental disorders complicating childbirth; O99.824 Streptococcus B carrier state complicating childbirth; F32.9 Major depressive disorder, single episode, unspecified; F41.9 Anxiety disorder, unspecified; O99.52 Diseases of the respiratory system complicating childbirth; J45.909 Unspecified asthma, uncomplicated; O69.81X0 Labor and delivery complicated by cord around neck, without compression, not applicable or unspecified; Z3A.38 38 weeks gestation of pregnancy; Z88.0 Allergy status to penicillin; Z88.1 Allergy status to other antibiotic agents; Z86.79 Personal history of other diseases of the circulatory system
CPT/HCPCS: 36415; 51702; 80306; 84112; 85027; 86780; 86850; 86900; 86901; 87340; 99285; J0595; J0690; J1200; J2001; J2590